=== PATIENT | male | born 2000 | race Two or more races ===

== ENCOUNTER 2024-09-14 23:10 | Emergency (ER) | payer OTHER ==
[~2024-09-14] VITALS: Ht 172.7 cm; Wt 109.6 kg
[2024-09-15 00:02] VITALS: BP 134/98; PULSE 78; RESP 16; TEMP 98.2; O2SAT 98
--- NOTE | 2024-09-15 00:35 | ED.PDOC ---
Musculoskeletal HPI Comments 24 YEAR OLD MALE PRESENTS TO ER WITH COMPLAINTS OF RIGHT CLAVICLE PAIN X 6 DAYS. PATIENT STATES THAT HE STARTED EXPERIENCING RIGHT CLAVICLE PAIN 6 DAYS AGO S/P PART OF A METAL DOOR FRAME HITTING HIM ON HIS RIGHT CLAVICLE AT WORK. HE RATES HIS CURRENT PAIN A 7/10 TO RIGHT CLAVICLE WITHOUT RADIATION AND REPORTS HE'S BEEN USING ICE WITH SOME RELIEF. DENIES USE OF MEDICATIONS FOR CURRENT SYMPTOMS. DENIES NECK PAIN, SHORTNESS OF BREATH, SKIN CHANGES, SHOULDER PAIN, NUMBNESS/TINGLING, CHEST PAIN OR ANY FURTHER SYMPTOMS/COMPLAINTS Chief Complaint: Upper Extremity Time Seen by MD: 23:13 Primary Care Provider: UNKNOWN Reviewed Notes: Nurses Notes, Medications, Allergies Allergies: Coded Allergies: NO KNOWN ALLERGIES (Unverified , 09/14/24) Home Meds Active Scripts Ibuprofen (Ibuprofen) 800 Mg Tab, 1 TAB PO TID PRN, #30 TAB 0 Refills Prov:NANDO LU 09/15/24 Information Source: Patient Mode of Arrival: Ambulatory Past Medical History PAST MEDICAL HISTORY: Asthma Surgical History (Other): RIGHT EYE SURGERY Family History Family History: Unknown Social History Smoker: Non-Smoker Alcohol: Denies ETOH Use Drugs: Denies Drug Use Lives In: Home Constitutional: denies: chills, diaphoresis, fatigue, fever, malaise, sweats, weakness, others EENTM: denies: blurred vision, double vision, ear bleeding, ear discharge, ear drainage, ear pain, ear ringing, eye pain, eye redness, hearing loss, mouth pain, mouth swelling, nasal discharge, nose bleeding, nose congestion, nose pain, photophobia, tearing, throat pain, throat swelling, voice changes, others Respiratory: denies: cough, hemoptysis, orthopnea, SOB at rest, shortness of breath, SOB with excertion, stridor, wheezing, others Cardiovascular: denies: chest pain, dizzy spells, diaphoresis, Dyspnea on exertion, edema, irregular heart beat, left arm pain, lightheadedness, palpitations, PND, syncope, others Gastrointestinal: denies: abdomen distended, abdominal pain, blood streaked bowels, constipated, diarrhea, dysphagia, difficulty swallowing, hematemesis, melena, nausea, poor appetite, poor fluid intake, rectal bleeding, rectal pain, vomiting, others Genitourinary: denies: burning, dysuria, flank pain, frequency, hematuria, incontinence, penile discharge, penile sore, pain, testicle pain, testicle swelling, urgency, others Neurological: denies: dizziness, fainting, headache, left sided numbness, left sided weakness, numbness, paresthesia, pre-existing deficit, right sided numbness, right sided weakness, seizure, speech problems, tingling, tremors, weakness, others Musculoskeletal: reports: others ( STATED IN HPI) Integumetry: denies: bruises, change in color, change in hair/nails, dryness, laceration, lesions, lumps, rash, wounds, others Allergic/Immunocompromised: denies: Difficulty Healing, Frequent Infections, Hives, Itching, others Hematologic/Lymphatic: denies: anemia, blood clots, easy bleeding, easy bruising, swollen glands, others Endocrine: denies: excessive hunger, excessive sweating, excessive thirst, excessive urination, flushing, intolerance to cold, intolerance to heat, unexplained weight gain, unexplained weight loss, others Psychiatric: denies: anxiety, bipolar disorder, depression, hopeless, panic disorder, schizophrenia, sleepless, suicidal, others Physical Exam General Appearance: No Apparent Distress HEENT: PERRL/EOMI Neck: Full Range of Motion, Non-Tender, Normal Respiratory: Chest Non-Tender, Lungs Clear, No Accessory Muscle Use, No Respiratory Distress, Normal Breath Sounds Cardiovascular: No Murmur, No Gallop, Regular Rate/Rhythm Breast Exam: Deferred Gastrointestinal: NOT DONE Genitalia: Deferred Pelvic: Deferred Rectal: Deferred Extremities: Normal capillary refill, Normal range of motion Musculoskeletal : Extremity Location: Clavicle (TTP TO RIGHT MID CLAVICLE NOTED. NO SKIN CHANGES/DEFORMITY APPRECIATED. NO TTP TO RIGHT SHOULDER NOTED. NEGATIVE APLEY SCRATCH TEST RIGHT SHOULDER. PULSES INTACT) Neurologic: Alert, body press operator II-XII nml as Tested, No Motor Deficits, Normal Affect, Normal Mood, No Sensory Deficits Cerebellar Function: Normal Reflexes: Normal Skin: Dry, Normal Color, Warm Peripheral Pulses: 2+ Radial (R), 2+ Radial (L), 2+ Brachial (R), 2+ Brachial (L) Lymphatic: No Adenopathy Was a procedure done? Was a procedure done?: No Sedation Sedation?: No Differential Diagnosis EXT Differential Diagnosis: Fracture, Dislocation, Neurovascular injury X-Ray, Labs, Meds, VS Vital Signs Date Time Temp Pulse Resp B/P (MAP) Pulse Ox O2 Delivery O2 Flow Rate FiO2 09/15/24 00:02 78 16 98 Room Air 09/15/24 00:02 98.2 78 16 134/98 (110) 98 98.2 09/14/24 23:30 98.2 78 16 134/98 (110) 98 98.2 PATIENT: DEBBIE SNOW: [id number]: [id number] : 2000 LOC: ER ROOM / BED: / AGE / SEX: 24 / M ADM STATUS: REG ER SERVICE ORDERING PHYSICIAN: NANDO LU PROCEDURE(s): RCLAV - R CLAVICLE COMPLETE XRAY REASON: right clavicle pain ORDER NUMBER(s): [id number], ACCESSION NUMBER(s): [id number] CLINICAL INDICATION: right clavicle pain TECHNIQUE: XY right CLAVICLE COMPLETE XRAY Comparison: None FINDINGS/IMPRESSION: There is no evidence of acute fracture or dislocation. Soft tissues are unremarkable. ATED BY: CHRISTOPHER DECKER MD DICTATED DATE/TIME: 09/15/2448 SIGNED BY: CHRISTOPHER DECKER MD SIGNED DATE/TIME: 09/15/2448 CC: RIGHT CLAVICLE X-RAY REVIEWED WORKMAN'S COMP PAPERWORK FILLED OUT ADVISED TO FOLLOW UP WITH PCP AND WORKMAN'S COMP PCP IN 1-2 DAYS PATIENT VERBALIZED UNDERSTANDING AND AGREEABLE WITH CURRENT PLAN OF CARE ADVISED TO RETURN TO ER IMMEDIATELY IF SYMPTOMS WORSEN Images Reviewed?: Images reviewed and evaluated by me Time of 1ST Reevaluation: 00:32 Reevaluation 1ST: N/A Patient Education/Counseling: Diagnosis, Treatment, Prognosis, Need For Follow Up Family Education/Counseling: No Family Present Departure 1 Departure Time of Disposition: 00:52 Impression: Primary Impression: Contusion of right clavicle Qualified Codes: T14.8XXA - Other injury of unspecified body region, initial encounter Disposition: HOME / SELF CARE / HOMELESS Condition: Stable e-Prescriptions Ibuprofen (Ibuprofen) 800 Mg Tab 1 TAB PO TID PRN, #30 TAB 0 Refills Prov: NANDO LU 09/15/24 Discharged With: Friend Critical Care Note Critical Care Time?: No Stability Stability form required: No Heart Score Heart Score: Heart Score Response (Comments) Value History N/A 0 EKG N/A 0 Age N/A 0 Risk Factors N/A 0 Troponin N/A 0 Total 0 NANDO LU Sep 15, 2024 00:35
[2024-09-15] MEDS ORDERED: IBUP-1456 PO (00:51)
--- NOTE | 2024-09-15 00:52 | DVH ---
CLINICAL INDICATION: right clavicle pain TECHNIQUE: XY right CLAVICLE COMPLETE XRAY Comparison: None FINDINGS/IMPRESSION: There is no evidence of acute fracture or dislocation. Soft tissues are unremarkable.
== END 2024-09-15 01:01 | disposition home or self-care (01) ==
LOC: ER 23:10
DX: S40.011A Contusion of right shoulder, initial encounter (principal); J45.909 Unspecified asthma, uncomplicated; Z79.1 Long term (current) use of non-steroidal anti-inflammatories (NSAID); W22.8XXA Striking against or struck by other objects, initial encounter; Y93.89 Activity, other specified; Y92.89 Other specified places as the place of occurrence of the external cause; Y99.8 Other external cause status
CPT/HCPCS: 73000

== ENCOUNTER 2025-05-15 12:49 | Emergency (ER) | payer OTHER, MEDICAID ==
[~2025-05-15] VITALS: Ht 172.7 cm; Wt 114.1 kg
[~2025-05-15 12:49] MED LIST: IBUP-1456 PO
[2025-05-15] MEDS ORDERED: IPRATROPIUM BROM 0.5 MG/2.5ML INH SOL ONE ×2 (13:44→14:29)
[2025-05-15] MEDS ORDERED: ALBUTEROL SULF 2.5 MG/0.5ML(0.5%) NEB SOLN ONE ×2 (13:44→14:29)
[2025-05-15] MEDS: IPRATROPIUM BROM 0.5 MG/2.5ML INH SOL NEB ONE ×2 (13:51→14:54)
[2025-05-15] MEDS: ALBUTEROL SULF 2.5 MG/0.5ML(0.5%) NEB SOLN NEB ONE ×2 (13:51→14:55)
--- NOTE | 2025-05-15 13:56 | ED.PDOC ---
SOB-HPI HPI Comments A 25 YEAR OLD MALE PRESENTS TO THE ED WITH COMPLAINT OF ASTHMA EXACERBATION. PATIENT STATES HE HAS A HISTORY OF ASTHMA AND HAS BEEN EXPERIENCING WHEEZING, CHEST TIGHTNESS, AND A MILD COUGH FOR THE PAST 2 DAYS. PATIENT NOTES THAT HE DOES NOT HAVE AN INHALER AT THIS TIME. PATIENT DENIES FEVER, CHILLS, SHORTNESS OF BREATH, CHEST PAIN, ABDOMINAL PAIN, NAUSEA, VOMITING, HEADACHE, OR OTHER COMPLAINTS. NO OTHER SYMPTOMS OR MODIFYING FACTORS AT THIS TIME. PATIENT IS ALERT, ORIENTED X 4, AND HAS STEADY GAIT. Chief Complaint: Asthma Time Seen by MD: 12:53 Primary Care Provider: UNKNOWN Reviewed notes: Nurses Notes, Medications, Allergies Information Source: Patient Mode of Arrival: Ambulatory Severity: Mild, Moderate Timing: Days Duration: Since onset, Days Context: Spontaneous Onset PE Risk Factors: None History of: Asthma, Recent URI Prehospital treatment: None Modifying Factors: Inhaler Associated Signs and Symptoms: Wheeze, Cough, Nasal Congestion If cough with SOB: Non-Productive Past Medical History PAST MEDICAL HISTORY: Asthma Surgical History: Denies all surgeries Family History Family History: Reviewed,noncontributory to illness Social History Smoker: Non-Smoker Alcohol: Denies ETOH Use Drugs: Denies Drug Use Lives In: Home Constitutional: denies: chills, diaphoresis, fatigue, fever, malaise, sweats, weakness, others EENTM: reports: nose congestion; denies: blurred vision, double vision, ear bleeding, ear discharge, ear drainage, ear pain, ear ringing, eye pain, eye redness, hearing loss, mouth pain, mouth swelling, nasal discharge, nose bleeding, nose pain, photophobia, tearing, throat pain, throat swelling, voice changes, others Respiratory: reports: cough, shortness of breath, wheezing; denies: hemoptysis, orthopnea, SOB at rest, SOB with excertion, stridor, others Cardiovascular: denies: chest pain, dizzy spells, diaphoresis, Dyspnea on exertion, edema, irregular heart beat, left arm pain, lightheadedness, palpitations, PND, syncope, others Gastrointestinal: denies: abdomen distended, abdominal pain, blood streaked bowels, constipated, diarrhea, dysphagia, difficulty swallowing, hematemesis, melena, nausea, poor appetite, poor fluid intake, rectal bleeding, rectal pain, vomiting, others Genitourinary: denies: burning, dysuria, flank pain, frequency, hematuria, incontinence, penile discharge, penile sore, pain, testicle pain, testicle swelling, urgency, others Neurological: denies: dizziness, fainting, headache, left sided numbness, left sided weakness, numbness, paresthesia, pre-existing deficit, right sided numbness, right sided weakness, seizure, speech problems, tingling, tremors, weakness, others Musculoskeletal: denies: back pain, gout, joint pain, joint swelling, muscle pain, muscle stiffness, neck pain, others Integumetry: denies: bruises, change in color, change in hair/nails, dryness, laceration, lesions, lumps, rash, wounds, others Allergic/Immunocompromised: denies: Difficulty Healing, Frequent Infections, Hives, Itching, others Hematologic/Lymphatic: denies: anemia, blood clots, easy bleeding, easy bruising, swollen glands, others Endocrine: denies: excessive hunger, excessive sweating, excessive thirst, excessive urination, flushing, intolerance to cold, intolerance to heat, unexplained weight gain, unexplained weight loss, others Psychiatric: denies: anxiety, bipolar disorder, depression, hopeless, panic disorder, schizophrenia, sleepless, suicidal, others All Other Systems: Reviewed and Negative Physical Exam General Appearance: No Apparent Distress, Obese HEENT: Normal ENT Inspection, PERRL/EOMI, Pharynx Normal, TMs Normal Neck: Full Range of Motion, Non-Tender, Normal, Normal Inspection Respiratory: Chest Non-Tender, Decreased Breath Sounds, Expiration, No Accessory Muscle Use, No Respiratory Distress, Wheezing Cardiovascular: No Edema, No JVD, No Murmur, No Gallop, Normal Peripheral Pulses, Regular Rate/Rhythm Breast Exam: Deferred Gastrointestinal: No Organomegaly, Non Tender, No Pulsatile Mass, Normal Bowel Sounds, Soft Genitalia: Deferred Pelvic: Deferred Rectal: Deferred Extremities: No calf tenderness, Normal capillary refill, Normal inspection, Normal range of motion, Non-tender, No pedal edema Musculoskeletal : Apperance: Normal Neurologic: Alert, laundry room attendant II-XII nml as Tested, No Motor Deficits, Normal Affect, Normal Mood, No Sensory Deficits Cerebellar Function: Normal Reflexes: Normal Skin: Dry, Normal Color, Warm Peripheral Pulses: 2+ carotid (R), 2+ carotid (L) Lymphatic: No Adenopathy Was a procedure done? Was a procedure done?: No Differential Dx Differential Diagnosis: Asthma, Bronchitis, Pneumonia, Sinusitis, Allergic Rhinitis, Otitis Media, Pharyngitis, URI X-Ray, Labs, Meds, VS Vital Signs Date Time Temp Pulse Resp B/P (MAP) Pulse Ox O2 Delivery O2 Flow Rate FiO2 05/15/25 14:53 98 Room Air* 0 21 05/15/25 14:53 16 98 Room Air* 0 21 05/15/25 13:52 98 Room Air* 0 21 05/15/25 13:52 16 98 Room Air* 0 21 05/15/25 13:38 97.4 105 19 141/98 (112) 93 97.4 05/15/25 13:38 105 19 93 Room Air 05/15/25 13:00 97.9 113 18 150/98 95 97.9 Current Medications Medications (Trade) Dose Ordered Sig/Nacho Route Start Time Stop Time Status Last Admin Albuterol (Ventolin Medneb) 2.5 mg ONCE ONCE NEB 05/15/25 13:45 05/15/25 13:46 DC 05/15/25 13:51 Ipratropium [place] (Atrovent Medneb) 0.5 mg ONCE ONCE NEB 05/15/25 13:45 05/15/25 13:46 DC 05/15/25 13:51 Methylprednisolone Sodium Succinate (Solu Medrol) 125 mg ONCE ONCE IM 05/15/25 13:45 05/15/25 13:46 DC 05/15/25 14:04 Albuterol (Ventolin Medneb) 2.5 mg ONCE ONCE NEB 05/15/25 14:30 05/15/25 14:31 DC 05/15/25 14:55 Ipratropium [place] (Atrovent Medneb) 0.5 mg ONCE ONCE NEB 05/15/25 14:30 05/15/25 14:31 DC 05/15/25 14:54 PATIENT: DEBBIE SNOW: [id number]: [id number] : 2000 LOC: ER ROOM / BED: / AGE / SEX: 25 / M ADM STATUS: REG ER SERVICE [id number] ORDERING PHYSICIAN: DONI HERNANDEZ PROCEDURE(s): CXRP - CHEST PORTABLE REASON: SOB WITH WHEEZING ORDER NUMBER(s): [id number], ACCESSION NUMBER(s): [id number] EXAM: XY CHEST PORTABLE HISTORY: SOB WITH WHEEZING, chest tightness, history of asthma COMPARISON: None TECHNIQUE: PA upright view of the chest was performed. FINDINGS: No pneumothorax, consolidative infiltrates, or pulmonary edema. There is mild central peribronchial thickening. The heart is not enlarged. There is mild thoracic dextroscoliosis. IMPRESSION: Mild reactive airways disease. The lungs are otherwise clear. ATED BY: UNRULY TRISTAN MD DICTATED DATE/TIME: 05/15/251409 SIGNED BY: UNRULY TRISTAN MD SIGNED DATE/TIME: 05/15/251409 CC: X-Ray, Labs, Meds, VS Comment EXTERNAL MEDICAL RECORDS REVIEWED: [NONE] INDEPENDENT HISTORIANS: [NONE] SOCIAL DETERMINANTS OF HEALTH: [NONE] LABS ORDERED: NONE REVIEWED AND INTERPRETED RESULTS: NONE IMAGING ORDERED: XR CHEST TREATMENTS ORDERED: DUONEB 3 MG INHL X2, SOLU-MEDROL 125 MG IM PROCEDURES PERFORMED: NONE CRITICAL CARE TIME: NONE I HAVE DISCUSSED THE PATIENT WITH THE ATTENDING PHYSICIAN DR. PERALTA AND HE AGREES WITH THE PATIENT'S PLAN OF CARE AND DISPOSITION. BASED ON HISTORY OF PRESENT ILLNESS, AND PHYSICAL EXAM, PATIENT WILL BE DISCHARGED HOME. DISCUSSED PLAN FOR DISCHARGE HOME WITH RX [ALBUTEROL INHALER AND PREDNISONE]. MEDICATION WARNINGS GIVEN. SHARED DECISION MAKING: PATIENT INSTRUCTED TO FOLLOW UP WITH PRIMARY CARE PROVIDER IN 1-2 DAYS FOR RE-EVALUATION OF SYMPTOMS. PATIENT VERBALIZES UNDERSTANDING TO RETURN TO ED FOR NEW OR WORSENING SYMPTOMS OR IF FOLLOW UP WITH PCP CANNOT BE OBTAINED. PATIENT FEELS COMFORTABLE GOING HOME AT THIS TIME. ALL QUESTIONS ADDRESSED AT TIME OF DISCHARGE. Images Reviewed?: Images reviewed and evaluated by me Time of 1ST Reevaluation: 14:57 Reevaluation 1ST: Improved Patient Education/Counseling: Diagnosis, Treatment, Need For Follow Up Family Education/Counseling: Diagnosis, Treatment, Need For Follow Up Medical Screening: No EMC Exist At This Time SEPSIS Sepsis Screen Date sepsis recognized/suspect: May 15, 2025 Time Sepsis recognized/suspect: 1301 Recent Procedure: No On Antibiotic Therapy: No Respiratory Rate >20: No Heart Rate >90: Yes Temp<36 C (96.8 F) or >38.3 C: No SBP <90 or MAP <65 mmHG: No New Acute Mental Status Change: No Is the patient on CPAP, BIPAP,: No Physician Orders Chest Portable (05/15/25 13:38) Vital Signs Date Time Temp Pulse Resp B/P (MAP) Pulse Ox O2 Delivery O2 Flow Rate FiO2 05/15/25 14:53 98 Room Air* 0 05/15/25 14:53 16 98 Room Air* 0 21 05/15/25 13:52 98 Room Air* 0 21 05/15/25 13:52 16 98 Room Air* 0 21 05/15/25 13:38 97.4 105 19 141/98 (112) 93 97.4 05/15/25 13:38 105 19 93 Room Air 05/15/25 13:00 97.9 113 18 150/98 95 97.9 Medications Medications Dose Ordered Sig/Nacho Route Start Time Stop Time Status Last Admin Dose Admin Albuterol 2.5 mg ONCE ONCE NEB 05/15/25 13:45 05/15/25 13:46 DC 05/15/25 13:51 Albuterol 2.5 mg ONCE ONCE NEB 05/15/25 14:30 05/15/25 14:31 DC 05/15/25 14:55 Ipratropium [place] 0.5 mg ONCE ONCE NEB 05/15/25 13:45 05/15/25 13:46 DC 05/15/25 13:51 Ipratropium [place] 0.5 mg ONCE ONCE NEB 05/15/25 14:30 05/15/25 14:31 DC 05/15/25 14:54 Methylprednisolone Sodium Succinate 125 mg ONCE ONCE IM 05/15/25 13:45 05/15/25 13:46 DC 05/15/25 14:04 Departure 1 Departure Time of Disposition: 15:00 Impression: Primary Impression: Acute asthma exacerbation Qualified Codes: J45.21 - Mild intermittent asthma with (acute) exacerbation Disposition: HOME / SELF CARE / HOMELESS Condition: Stable Additional Instructions: FOLLOW-UP WITH PCP IN 1 TO 2 DAYS. TAKE MEDICATIONS PRESCRIBED. RETURN TO ED FOR ANY NEW OR WORSENING SYMPTOMS. e-Prescriptions Prednisone (Prednisone) 20 Mg Tab 60 MG PO DAILY, #21 TAB Prov: DONI HERNANDEZ 05/15/25 Albuterol Sulfate (Albuterol Sulfate Hfa) 108 Mcg/Act Aer 108 MCG IN TID, #120 AER Prov: DONI HERNANDEZ 05/15/25 Discharged With: Self Critical Care Note Critical Care Time?: No Stability Stability form required: No Heart Score Heart Score: Heart Score Response (Comments) Value History N/A 0 EKG N/A 0 Age N/A 0 Risk Factors N/A 0 Troponin N/A 0 Total 0 I personally scribed for DONI HERNANDEZ ([email or web address]) on 05/15/25 at 14:03. Electronically submitted by Seth Gaston ([email or web address]). I personally scribed for DONI HERNANDEZ ([email or web address]) on 05/15/25 at 14:36. Electronically submitted by Seth Gaston ([email or web address]). DONI HERNANDEZ May 15, 2025 13:56
[2025-05-15] MEDS ORDERED: methylPREDNISolone SOD SUCC 125 MG/2 ML VL ONE (14:00)
[2025-05-15] MEDS: methylPREDNISolone SOD SUCC 125 MG/2 ML VL IM ONE (14:04)
--- NOTE | 2025-05-15 14:12 | DVH ---
EXAM: XY CHEST PORTABLE HISTORY: SOB WITH WHEEZING, chest tightness, history of asthma COMPARISON: None TECHNIQUE: PA upright view of the chest was performed. FINDINGS: No pneumothorax, consolidative infiltrates, or pulmonary edema. There is mild central peribronchial thickening. The heart is not enlarged. There is mild thoracic dextroscoliosis. IMPRESSION: Mild reactive airways disease. The lungs are otherwise clear.
[2025-05-15] MEDS ORDERED: PRED20TA2 PO (14:21)
[2025-05-15] MEDS ORDERED: ALBU108A5 IN (14:21)
[2025-05-15 15:09] VITALS: BP 140/98; PULSE 91; RESP 19; TEMP 98.9; O2SAT 93
== END 2025-05-15 15:12 | disposition home or self-care (01) ==
LOC: ER 12:49
DX: J45.901 Unspecified asthma with (acute) exacerbation (principal)
CPT/HCPCS: 71045; 94640; 96372; 99285; J2919

== ENCOUNTER 2025-06-06 21:46 | Emergency (ER) | payer MEDICAID, OTHER ==
[~2025-06-06] VITALS: Ht 172.7 cm; Wt 117.5 kg
[~2025-06-06 21:46] MED LIST changes: +ALBU108A5 IN; +PRED20TA2 PO
[2025-06-07] MEDS ORDERED: HYDR-3682 PO (00:33)
--- NOTE | 2025-06-07 00:33 | ED.PDOC ---
History of Present Illness(SKN HPI Comments PT PRESENTED TO ED FOR RASH TO BLE & BUE X1 DAY. 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, Allergies Allergies: Coded Allergies: NO KNOWN ALLERGIES (Unverified , 09/14/24) Home Meds Active Scripts Prednisone (Prednisone) 20 Mg Tab, 60 MG PO DAILY, #15 TAB Prov:DONI HERNANDEZ 06/11/25 Albuterol Sulfate (Albuterol Sulfate Hfa) 108 Mcg/Act Aer, 108 MCG IN TID, #120 AER Prov:DONI HERNANDEZ 06/11/25 Prednisone (Prednisone) 20 Mg Tab, 60 MG PO DAILY, #21 TAB Prov:DONI HERNANDEZ 05/15/25 Albuterol Sulfate (Albuterol Sulfate Hfa) 108 Mcg/Act Aer, 108 MCG IN TID, #120 AER Prov:DONI HRENANDEZ 05/15/25 Ibuprofen (Ibuprofen) 800 Mg Tab, 1 TAB PO TID PRN, #30 TAB 0 Refills Prov:NANDO LU 09/15/24 Information Source: Patient Mode of Arrival: Ambulatory Past Medical History PAST MEDICAL HISTORY: Asthma Surgical History: Denies all surgeries Family History Family History: Reviewed,noncontributory to illness Social History Smoker: Non-Smoker Alcohol: Denies ETOH Use Drugs: Denies Drug Use Lives In: Home All Other Systems: Reviewed and Negative (SEE HPI) Physical Exam General Appearance: No Apparent Distress, Normal HEENT: Normal ENT Inspection, Pharynx Normal, TMs Normal Neck: Full Range of Motion, Non-Tender Respiratory: Lungs Clear, No Respiratory Distress, Normal Breath Sounds Cardiovascular: No Murmur, Normal Peripheral Pulses, Regular Rate/Rhythm Breast Exam: Deferred Gastrointestinal: No Organomegaly, Non Tender, No Pulsatile Mass, Normal Bowel Sounds, Soft Genitalia: Deferred Pelvic: Deferred Rectal: Deferred Extremities: Normal range of motion, No pedal edema Musculoskeletal : Apperance: Normal Neurologic: Alert, No Motor Deficits, Normal Affect, Normal Mood, No Sensory Deficits Cerebellar Function: Normal Reflexes: NOT DONE Skin: Dry, Normal Color, Rash (DIFFUSE PAPULAR ERYTHEMIC RASH NO NOTED EXCORIATIONS OR OPEN LESIONS), Warm Lymphatic: No Adenopathy Was a procedure done? Was a procedure done?: No Differential Diagnosis (INTG) Differential Diagnosis: Cellulitis Differential Diagnosis: Abscess, Candidiasis, Impetigo, Scabies, Tinea, Urticaria, Varicella, Viral exanthema X-Ray, Labs, Meds, VS Vital Signs Date Time Temp Pulse Resp B/P (MAP) Pulse Ox O2 Delivery O2 Flow Rate FiO2 06/07/25 00:34 98.9 71 17 150/92 (111) 98 98.9 06/07/25 00:34 71 17 98 Room Air 06/06/25 21:48 97.5 75 16 133/85 98 97.5 Time of 1ST Reevaluation: 21:55 Reevaluation 1ST: Unchanged Time of 2ND Reevaluation: 00:32 Reevaluation 2ND: Improved Patient Education/Counseling: Diagnosis, Treatment, Need For Follow Up Family Education/Counseling: No Family Present SEPSIS Sepsis Screen Date sepsis recognized/suspect: Jun 06, 2025 Time Sepsis recognized/suspect: 2149 Recent Procedure: No On Antibiotic Therapy: No Respiratory Rate >20: No Heart Rate >90: No Temp<36 C (96.8 F) or >38.3 C: No SBP <90 or MAP <65 mmHG: No New Acute Mental Status Change: No Is the patient on CPAP, BIPAP,: No Vital Signs Date Time Temp Pulse Resp B/P (MAP) Pulse Ox O2 Delivery O2 Flow Rate FiO2 06/07/25 00:34 98.9 71 17 150/92 (111) 98 98.9 06/07/25 00:34 71 17 98 Room Air 06/06/25 21:48 97.5 75 16 133/85 98 97.5 Departure 1 Departure Time of Disposition: 00:31 Impression: Primary Impression: Prickly heat Disposition: 01 HOME / SELF CARE / HOMELESS Condition: Stable Discharged With: Self Critical Care Note Critical Care Time?: No Stability Stability form required: OBDULIO Raza Jun 07, 2025 00:33
[2025-06-07 00:34] VITALS: BP 150/92; PULSE 71; RESP 17; TEMP 98.9; O2SAT 98
== END 2025-06-07 00:54 | disposition home or self-care (01) ==
LOC: ER 21:46
DX: L74.0 Miliaria rubra (principal); J45.909 Unspecified asthma, uncomplicated; Z79.899 Other long term (current) drug therapy; Z79.52 Long term (current) use of systemic steroids
CPT/HCPCS: 96372; 99283; J1100

== ENCOUNTER 2025-06-11 11:56 | Emergency (ER) | payer MEDICAID ==
[~2025-06-11] VITALS: Ht 172.7 cm; Wt 113.3 kg
[~2025-06-11 11:56] MED LIST changes: +HYDR-3682 PO
[2025-06-11 12:50] VITALS: BP 150/95; PULSE 88; TEMP 98.1
[2025-06-11 13:12] VITALS: RESP 16; O2SAT 97
--- NOTE | 2025-06-11 13:13 | ED.PDOC ---
SOB-HPI HPI Comments A 25 YEAR OLD MALE PRESENTS TO THE ED WITH COMPLAINT OF ASTHMA EXACERBATION. PATIENT STATES HE HAS A HISTORY OF ASTHMA AND RAN OUT OF HIS ALBUTEROL INHALER RECENTLY. PATIENT REPORTS HE HAS BEEN EXPERIENCING WHEEZING, CHEST TIGHTNESS, AND A COUGH FOR THE PAST 2 DAYS. PATIENT DENIES FEVER, CHILLS, SHORTNESS OF BREATH, CHEST PAIN, ABDOMINAL PAIN, NAUSEA, VOMITING, HEADACHE, OR OTHER COMPLAINTS. NO OTHER SYMPTOMS OR MODIFYING FACTORS AT THIS TIME. PATIENT IS ALERT, ORIENTED X 4, AND HAS STEADY GAIT. Chief Complaint: Asthma Time Seen by MD: 12:08 Primary Care Provider: UNKNOWN Reviewed notes: Nurses Notes, Medications, Allergies Information Source: Patient Mode of Arrival: Ambulatory Severity: Moderate Timing: Days Duration: Since onset, Other Context: Spontaneous Onset PE Risk Factors: None History of: Asthma Prehospital treatment: None Modifying Factors: Nothing Associated Signs and Symptoms: Wheeze, Cough, Nasal Congestion If cough with SOB: Productive Past Medical History PAST MEDICAL HISTORY: Asthma Surgical History: Denies all surgeries Family History Family History: Reviewed,noncontributory to illness Social History Smoker: Non-Smoker Alcohol: Denies ETOH Use Drugs: Denies Drug Use Lives In: Home Constitutional: denies: chills, diaphoresis, fatigue, fever, malaise, sweats, weakness, others EENTM: reports: nose congestion; denies: blurred vision, double vision, ear bleeding, ear discharge, ear drainage, ear pain, ear ringing, eye pain, eye redness, hearing loss, mouth pain, mouth swelling, nasal discharge, nose bleeding, nose pain, photophobia, tearing, throat pain, throat swelling, voice changes, others Respiratory: reports: cough, wheezing; denies: hemoptysis, orthopnea, SOB at rest, shortness of breath, SOB with excertion, stridor, others Cardiovascular: denies: chest pain, dizzy spells, diaphoresis, Dyspnea on exertion, edema, irregular heart beat, left arm pain, lightheadedness, palpitations, PND, syncope, others Gastrointestinal: denies: abdomen distended, abdominal pain, blood streaked bowels, constipated, diarrhea, dysphagia, difficulty swallowing, hematemesis, melena, nausea, poor appetite, poor fluid intake, rectal bleeding, rectal pain, vomiting, others Genitourinary: denies: burning, dysuria, flank pain, frequency, hematuria, incontinence, penile discharge, penile sore, pain, testicle pain, testicle swelling, urgency, others Neurological: denies: dizziness, fainting, headache, left sided numbness, left sided weakness, numbness, paresthesia, pre-existing deficit, right sided n umbness, right sided weakness, seizure, speech problems, tingling, tremors, weakness, others Musculoskeletal: denies: back pain, gout, joint pain, joint swelling, muscle pain, muscle stiffness, neck pain, others Integumetry: denies: bruises, change in color, change in hair/nails, dryness, laceration, lesions, lumps, rash, wounds, others Allergic/Immunocompromised: denies: Difficulty Healing, Frequent Infections, Hives, Itching, others Hematologic/Lymphatic: denies: anemia, blood clots, easy bleeding, easy bruising, swollen glands, others Endocrine: denies: excessive hunger, excessive sweating, excessive thirst, excessive urination, flushing, intolerance to cold, intolerance to heat, unexplained weight gain, unexplained weight loss, others Psychiatric: denies: anxiety, bipolar disorder, depression, hopeless, panic disorder, schizophrenia, sleepless, suicidal, others All Other Systems: Reviewed and Negative Physical Exam General Appearance: No Apparent Distress, Obese HEENT: Normal ENT Inspection, PERRL/EOMI, Pharynx Normal, TMs Normal Neck: Full Range of Motion, Non-Tender, Normal, Normal Inspection Respiratory: Chest Non-Tender, Expiration, Lungs Clear, No Accessory Muscle Use, No Respiratory Distress, Wheezing Cardiovascular: No Edema, No JVD, No Murmur, No Gallop, Normal Peripheral Pulses, Regular Rate/Rhythm Breast Exam: Deferred Gastrointestinal: No Organomegaly, Non Tender, No Pulsatile Mass, Normal Bowel Sounds, Soft Genitalia: Deferred Pelvic: Deferred Rectal: Deferred Extremities: No calf tenderness, Normal capillary refill, Normal inspection, Normal range of motion, Non-tender, No pedal edema Musculoskeletal : Apperance: Normal Neurologic: Alert, plant guide II-XII nml as Tested, No Motor Deficits, Normal Affect, Normal Mood, No Sensory Deficits Cerebellar Function: Normal Reflexes: Normal Skin: Dry, Normal Color, Warm Peripheral Pulses: 2+ carotid (R), 2+ carotid (L) Lymphatic: No Adenopathy Was a procedure done? Was a procedure done?: No Differential Dx Differential Diagnosis: Asthma, Bronchitis, Pneumonia, Sinusitis, Allergic Rhinitis, Otitis Media, Pharyngitis, URI X-Ray, Labs, Meds, VS Vital Signs Date Time Temp Pulse Resp B/P (MAP) Pulse Ox O2 Delivery O2 Flow Rate FiO2 06/11/25 13:12 16 97 Room Air* 0 21 06/11/25 12:50 98.1 88 18 150/95 (113) 97 98.1 06/11/25 12:50 88 18 97 Room Air 06/11/25 11:58 97.1 88 18 150/95 97 97.1 Current Medications Medications (Trade) Dose Ordered Sig/Nacho Route Start Time Stop Time Status Last Admin Albuterol (Ventolin Medneb) 2.5 mg ONCE ONCE NEB 06/11/25 13:00 06/11/25 13:01 DC 06/11/25 13:20 Ipratropium [place] (Atrovent Medneb) 0.5 mg ONCE ONCE NEB 06/11/25 13:00 06/11/25 13:01 DC 06/11/25 13:20 X-Ray, Labs, Meds, VS Comment EXTERNAL MEDICAL RECORDS REVIEWED: [NONE] INDEPENDENT HISTORIANS: [NONE] SOCIAL DETERMINANTS OF HEALTH: [NONE] LABS ORDERED: NONE REVIEWED AND INTERPRETED RESULTS: NONE IMAGING ORDERED: NONE TREATMENTS ORDERED: DUONEB 3 MG INHL PROCEDURES PERFORMED: NONE CRITICAL CARE TIME: NONE I HAVE DISCUSSED THE PATIENT WITH THE ATTENDING PHYSICIAN DR. PERALTA AND HE AGREES WITH THE PATIENT'S PLAN OF CARE AND DISPOSITION. BASED ON HISTORY OF PRESENT ILLNESS, AND PHYSICAL EXAM, PATIENT WILL BE DISCHARGED HOME. DISCUSSED PLAN FOR DISCHARGE HOME WITH RX [ALBUTEROL INHALER AND PREDNISONE]. MEDICATION WARNINGS GIVEN. SHARED DECISION MAKING: PATIENT INSTRUCTED TO FOLLOW UP WITH PRIMARY CARE PROVIDER IN 1-2 DAYS FOR RE-EVALUATION OF SYMPTOMS. PATIENT VERBALIZES UNDERSTANDING TO RETURN TO ED FOR NEW OR WORSENING SYMPTOMS OR IF FOLLOW UP WITH PCP CANNOT BE OBTAINED. PATIENT FEELS COMFORTABLE GOING HOME AT THIS TIME. ALL QUESTIONS ADDRESSED AT TIME OF DISCHARGE. Time of 1ST Reevaluation: 13:30 Reevaluation 1ST: Improved Patient Education/Counseling: Diagnosis, Treatment, Need For Follow Up Family Education/Counseling: Diagnosis, Treatment, Need For Follow Up Medical Screening: No EMC Exist At This Time SEPSIS Sepsis Screen Date sepsis recognized/suspect: Jun 11, 2025 Time Sepsis recognized/suspect: 1200 Recent Procedure: No On Antibiotic Therapy: No Respiratory Rate >20: No Heart Rate >90: No Temp<36 C (96.8 F) or >38.3 C: No SBP <90 or MAP <65 mmHG: No New Acute Mental Status Change: No Is the patient on CPAP, BIPAP,: No Vital Signs Date Time Temp Pulse Resp B/P (MAP) Pulse Ox O2 Delivery O2 Flow Rate FiO2 06/11/25 13:12 16 97 Room Air* 0 21 06/11/25 12:50 98.1 88 18 150/95 (113) 97 98.1 06/11/25 12:50 88 18 97 Room Air 06/11/25 11:58 97.1 88 18 150/95 97 97.1 Medications Medications Dose Ordered Sig/Nacho Route Start Time Stop Time Status Last Admin Dose Admin Albuterol 2.5 mg ONCE ONCE NEB 06/11/25 13:00 06/11/25 13:01 DC 06/11/25 13:20 Ipratropium [place] 0.5 mg ONCE ONCE NEB 06/11/25 13:00 06/11/25 13:01 DC 06/11/25 13:20 Departure 1 Departure Time of Disposition: 13:30 Impression: Primary Impression: Acute asthma exacerbation Qualified Codes: J45.21 - Mild intermittent asthma with (acute) exacerbation Additional Impression: Encounter for medication refill Disposition: HOME / SELF CARE / HOMELESS Condition: Stable Additional Instructions: FOLLOW-UP WITH PCP IN 1 TO 2 DAYS. TAKE MEDICATIONS PRESCRIBED. RETURN TO ED FOR ANY NEW OR WORSENING SYMPTOMS. e-Prescriptions Prednisone (Prednisone) 20 Mg Tab 60 MG PO DAILY, #15 TAB Prov: DONI HERNANDEZ 06/11/25 Albuterol Sulfate (Albuterol Sulfate Hfa) 108 Mcg/Act Aer 108 MCG IN TID, #120 AER Prov: DONI HERNANDEZ 06/11/25 Discharged With: Self Critical Care Note Critical Care Time?: No Stability Stability form required: No Heart Score Heart Score: Heart Score Response (Comments) Value History N/A 0 EKG N/A 0 Age N/A 0 Risk Factors N/A 0 Troponin N/A 0 Total 0 I personally scribed for DONI HERNANDEZ ([email or web address]) on 06/11/25 at 13:13. Electronically submitted by Seth Gaston ([email or web address]). DONI HERNANDEZ Jun 11, 2025 13:13
[2025-06-11] MEDS: ALBUTEROL SULF 2.5 MG/0.5ML(0.5%) NEB SOLN NEB ONE (13:20)
[2025-06-11] MEDS: IPRATROPIUM BROM 0.5 MG/2.5ML INH SOL NEB ONE (13:20)
== END 2025-06-11 13:37 | disposition home or self-care (01) ==
LOC: ER 11:56
DX: J45.901 Unspecified asthma with (acute) exacerbation (principal); Z76.0 Encounter for issue of repeat prescription; Z79.899 Other long term (current) drug therapy
CPT/HCPCS: 94640